=== PATIENT | male | born 1935 | race Caucasian/White ===

== ENCOUNTER → 2016-04-27 | Outpatient (CLI) | payer MEDICARE, BC ==
[~2016-04-27] MED LIST: ATOR40TA68 PO; CELE200C PO; CHOL50009 PO; HYDR-3498 PO; LISI40TA9 PO; VIT1TABL33 PO
--- NOTE | 2016-04-27 15:25 | RADRPT ---
PROCEDURE: XR Right hip and pelvis. CLINICAL INDICATION: Right hip pain. Pelvic pain. Postop. TECHNIQUE: Two views. Frontal pelvis and lateral right hip. COMPARISON: 03/23/2015. FINDINGS: There is no fracture or dislocation. The soft tissues are normal. There is a right hip total arthroplasty which appears satisfactory. There are degenerative changes of the left hip with joint space narrowing and osteophytes. There is no lytic or blastic lesion. The upper pelvis is not completely included on the image. IMPRESSION: 1. Satisfactory postoperative appearance of the right hip. 2. Moderate degenerative changes of the left hip. RPTAT: QQ .Angelo Felix MD, MD Date Time Electronically viewed and signed by .Angelo Felix MD, on 04/27/2016 15:25 .R/
--- NOTE | 2016-04-28 10:18 | HKNOTE ---
DATE OF SERVICE: 04/27/2016 Patient comes in for a checkup and complains of pain in his left hip. 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 He has been very pleased with the results of surgery. He has had absolutely no pain since the adi sebastian. However, he complains that the right leg "feels too short" and he has been getting pain in th e left groin. Pain in the left groin is minimal and only occurs on forced external rotation and full flexion. He feels that his right leg has been short since the hip replacement and "that must be causing me to luu ve pain in my left hip." Patient's pain in the left hip is not severe. He is not taking any medication for the pain and he is not limited in any way by the pain in the left hip. PHYSICAL EXAMINATION: Both hips have full range of motion. The left hip has pain in the left groin only on forced external rotation. IMAGING: Plain x-rays of the pelvis and hips obtained today were reviewed. A line drawn under the lowest point of the pelvis on both sides connects with the shaft of the femur in exactly the same sp ot about possibly one-eighth of an inch below the lesser trochanter. The patient was advised that in going over my operative report at surgery we had a problem in that t he femoral component did not seat all the way and we were concerned that the right leg may be too lo ng. As it turns out, I am pleased to note that he has no leg length difference. However, on putting shoe lifts under his right foot the patient indicates that one-eighth of an inch shoe lift will give him relief. Only to please him I gave him a prescription for a one-eighth inch shoe lift for the right side. I advised him that we hardly ever provide shoe lifts that are so thin because usually the pelvis tilt will compensate and after a few months patient hardly ever remember that they had any leg length dif ference if they had one to begin with. He was advised that his left hip will continue to deteriorate that eventually he will need to have a hip replacement. When he starts having significant pain in the left hip he will return for a corti sone injection. Meanwhile, he will take [id number] anti-inflammatory medications and pain medi cations as needed. Dictated By: MAYUR MORATAYA MD HH/NTS Conf#: [id number] DID#: [id number]
== END | disposition home or self-care (01) ==
LOC: HKI 14:44
DX: Z47.1 Aftercare following joint replacement surgery (principal); Z96.642 Presence of left artificial hip joint
CPT/HCPCS: 73502; G0463

== ENCOUNTER → 2016-05-11 | Outpatient (CLI) | payer MEDICARE, BC ==
--- NOTE | 2016-05-12 03:27 | HKNOTE ---
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 He has had increasing pain in the hip. 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 PHYSICAL EXAMINATION: His temperature is 98.6, blood pressure 155/75. On examination of the left h ip, marked pain at the limits of motion. Note that he claims that his right leg is shorter than the left. X-ray measurements indicate that i f there is a difference, it is minimal. At his request, he is given a prescription for a shoe lift. MANAGEMENT: Under sterile conditions, given injection of 2 mL of Kenalog and 6 mL of 2% lidocaine i nto the left hip joint. He will be seen again as necessary. Dictated By: MAYUR FINN/FELICITA Conf#: [id number] DID#: [id number]
== END | disposition home or self-care (01) ==
LOC: HKI 14:32
DX: M16.12 Unilateral primary osteoarthritis, left hip (principal)
CPT/HCPCS: 20610; G0463; J3301

== ENCOUNTER → 2018-02-11 | Outpatient (CLI) | END | disposition home or self-care (01) ==